=== PATIENT | female | born 1990 | race Caucasian/White ===

== ENCOUNTER 2016-12-22 01:07 | Emergency (ER) | payer SELFPAY ==
[~2016-12-22] VITALS: Ht 172.7 cm; Wt 89.5 kg
[~2016-12-22 01:07] MED LIST: ALBUTEROL2.5 MG/3 M IH; ALLERGY10 MG PO; DELSYM30 MG/5 M1 PO; IBUPROFEN200 M1 PO; LOTRISONE 0.05%1 CRE TP; MIRALAX17 GM PO; OMNICEF 300MG300 MG PO; PREDNISONE10 MG PO; TYLENOL 500MG500 MG PO; ZITHROMAX Z PA250 MG PO; ZOFRAN4 M1 PO
[2016-12-22 03:50] VITALS: BP 130/84
== END 2016-12-22 03:50 | disposition home or self-care (01) ==
LOC: ED 01:07
DX: R11.2 Nausea with vomiting, unspecified (principal); R10.9 Unspecified abdominal pain; F10.129 Alcohol abuse with intoxication, unspecified; Y90.6 Blood alcohol level of 120-199 mg/100 ml; Z32.02 Encounter for pregnancy test, result negative
CPT/HCPCS: J1885; J7030

== ENCOUNTER 2017-03-10 07:01 | Emergency (ER) | payer SELFPAY ==
[~2017-03-10] VITALS: Ht 172.7 cm; Wt 88.6 kg
[2017-03-10] MEDS ORDERED: WOMEN'S DAILY F1 TAB PO (07:25)
[2017-03-10 08:54] VITALS: BP 111/75
== END 2017-03-10 09:00 | disposition home or self-care (01) ==
LOC: ED 07:01
DX: R06.02 Shortness of breath (principal); R23.2 Flushing; R00.0 Tachycardia, unspecified; T46.7X5A Adverse effect of peripheral vasodilators, initial encounter
CPT/HCPCS: J7030

== ENCOUNTER 2018-11-22 05:58 | Emergency (ER) | payer OTHER ==
[~2018-11-22 05:58] MED LIST changes: +WOMEN'S DAILY F1 TAB PO
[2018-11-22 07:08] LABS: EOS # 0.3 (0.04-0.40); EOS % 2.9 % (1.0-5.0); HEMOGLOBIN 14.9 g/dL (12.5-16.0); LYMPH# 2.3 (1.50-4.00); MEAN CELL VOLUME 87 fl (78-100); MEAN CORPUSCULAR HEMOGLOBIN 28 pg (27-31); MEAN CORPUSCULAR HGB CONC 32 g/dL (33-37); MONO # 0.7 (0.20-0.80); NEU # 7.8 (1.40-6.50); PLATELET COUNT 267 K/mm3 (130-400); RED BLOOD COUNT 5.27 M/mm3 (4.10-5.30); RED CELL DISTRIBUTION WIDTH 14.9 % (11.5-14.5); WHITE BLOOD COUNT 11.2 K/mm3 (4.8-10.8)
[2018-11-22 07:17] LABS: CALCIUM 9.6 mg/dL (8.4-10.2); POTASSIUM 3.7 mmol/L (3.6-5.0)
[2018-11-22 07:19] LABS: URINE APPEARANCE CLOUDY; URINE BILIRUBIN NEGATIVE (NEGATIVE); URINE BLOOD 50 ery/uL (NEGATIVE); URINE COLOR YELLOW; URINE GLUCOSE NEGATIVE (NEGATIVE); URINE KETONE 1+ (NEGATIVE); URINE LEUKOCYTE ESTERASE 1+ (NEGATIVE); URINE NITRATE NEGATIVE (NEGATIVE); URINE PROTEIN(semi-quant) 1+ mg/dL (NEGATIVE); URINE UROBILINOGEN NORMAL (NORMAL)
[2018-11-22 07:20] LABS: URINE MUCUS PRESENT (NOT PRESENT)
[2018-11-22 10:07] LABS: URINE APPEARANCE CLOUDY; URINE COLOR 7; URINE GLUCOSE NEGATIVE (NEGATIVE); URINE PROTEIN(semi-quant) TRACE mg/dL (NEGATIVE)
[2018-11-22 10:08] LABS: URINE BILIRUBIN NEGATIVE (NEGATIVE); URINE BLOOD 250 ery/uL (NEGATIVE); URINE KETONE 1+ (NEGATIVE); URINE LEUKOCYTE ESTERASE NEGATIVE (NEGATIVE); URINE MUCUS PRESENT (NOT PRESENT); URINE NITRATE POSITIVE (NEGATIVE); URINE UROBILINOGEN NORMAL (NORMAL)
[2018-11-22] MEDS ORDERED: PERCOCET 325 MG1 TA2 PO (10:30)
[2018-11-22] MEDS ORDERED: MACROBID 100 M100 MG PO (10:30)
[2018-11-22 10:41] VITALS: BP 115/77
== END 2018-11-22 10:41 | disposition home or self-care (01) ==
LOC: ED 05:58
PROVIDERS: Family Medicine
DX: N23 Unspecified renal colic (principal); N39.0 Urinary tract infection, site not specified; F17.210 Nicotine dependence, cigarettes, uncomplicated; Z90.49 Acquired absence of other specified parts of digestive tract; Z87.442 Personal history of urinary calculi
CPT/HCPCS: A4216; J0696; J1885; J2405; J7030

== ENCOUNTER 2022-04-09 19:02 | Emergency (ER) | payer SELFPAY ==
[~2022-04-09 19:02] MED LIST changes: +MACROBID 100 M100 MG PO; +PERCOCET 325 MG1 TA2 PO
[2022-04-09 20:39] LABS: BASO # 0.07 K/mm3 (0.02-0.10); EOS # 0.12 K/mm3 (0.04-0.40); EOS % 0.5 % (1.0-5.0); HEMATOCRIT 43.3 % (37.0-47.0); HEMOGLOBIN 14.5 g/dL (12.5-16.0); LYMPH# 2.45 K/mm3 (1.50-4.00); MEAN CELL VOLUME 91 fl (78-100); MEAN CORPUSCULAR HEMOGLOBIN 30 pg (27-31); MEAN CORPUSCULAR HGB CONC 34 g/dL (33-37); MEAN PLATELET VOLUME 10.6 fl (7.4-10.4); MONO # 1.14 K/mm3 (0.20-0.80); NEU # 19.98 K/mm3 (1.40-6.50); PLATELET COUNT 230 K/mm3 (130-400); RED BLOOD COUNT 4.78 M/mm3 (4.10-5.30); RED CELL DISTRIBUTION WIDTH 13.3 % (11.5-14.5)
[2022-04-09 20:49] LABS: WHITE BLOOD COUNT 23.8 K/mm3 (4.8-10.8)
[2022-04-09 20:52] LABS: ALBUMIN 4.2 g/dL (3.5-5.0); POTASSIUM 3.7 mmol/L (3.5-5.1)
[2022-04-09 20:55] LABS: TOTAL PROTEIN 7.1 g/dL (6.4-8.3)
[2022-04-09 20:57] LABS: TOTAL BILIRUBIN 0.5 mg/dL (0.2-1.2)
[2022-04-09 22:11] LABS: PH-URINE 5.5 (5.0 - 8.0); URINE APPEARANCE HAZY; URINE COLOR YELLOW; URINE GLUCOSE NEGATIVE (NEGATIVE); URINE KETONE 3+ (NEGATIVE); URINE PROTEIN(semi-quant) TRACE (NEGATIVE)
[2022-04-09 22:12] LABS: URINE BILIRUBIN NEGATIVE (NEGATIVE); URINE BLOOD NEGATIVE (NEGATIVE); URINE LEUKOCYTE ESTERASE NEGATIVE (NEGATIVE); URINE MUCUS PRESENT (NOT PRESENT); URINE NITRATE NEGATIVE (NEGATIVE); URINE UROBILINOGEN 4 mg/dL (NORMAL); URINE WBC 0-1 /hpf (0-3)
[2022-04-09] MEDS ORDERED: AMOXICILLIN AND1 TA2 PO (22:14)
[2022-04-09] MEDS ORDERED: ZOFRAN ODT4 MG PO (22:14)
[2022-04-09 22:42] VITALS: BP 129/80
== END 2022-04-09 22:43 | disposition home or self-care (01) ==
LOC: ED 19:02
PROVIDERS: Physician Assistant
DX: U07.1 COVID-19 (principal); J32.9 Chronic sinusitis, unspecified; F17.200 Nicotine dependence, unspecified, uncomplicated; Z88.1 Allergy status to other antibiotic agents; Z28.310 Unvaccinated for COVID-19
CPT/HCPCS: J0696; J1885; J2405; J7030

== ENCOUNTER → 2023-04-18 | Outpatient (CLI) | payer MEDICAID ==
[~2023-04-18] MED LIST changes: +AMOXICILLIN AND1 TA2 PO; +ZOFRAN ODT4 MG PO
== END ==
LOC: LAB 10:12
DX: R53.83 Other fatigue (principal); Z20.822 Contact with and (suspected) exposure to COVID-19

== ENCOUNTER → 2023-05-27 | Outpatient (CLI) | payer MEDICAID | LOC: LAB 16:39 | DX: E55.9 Vitamin D deficiency, unspecified (principal) ==

== ENCOUNTER 2023-07-13 13:08 | Emergency (ER) | payer MEDICAID ==
[~2023-07-13] VITALS: Ht 172.7 cm; Wt 99.1 kg
[2023-07-13 13:10] VITALS: BP 137/92
[2023-07-13] MEDS ORDERED: CLOPIDOGREL75 M2 PO (13:35)
[2023-07-13] MEDS ORDERED: PROPRANOLOL HCL20 M2 PO (13:35)
[2023-07-13 13:38] LABS: BASO # 0.03 K/mm3 (0.02-0.10); EOS # 0.42 K/mm3 (0.04-0.40); EOS % 3.8 % (1.0-5.0); HEMOGLOBIN 14.7 g/dL (12.5-16.0); LYMPH# 3.08 K/mm3 (1.50-4.00); MEAN CELL VOLUME 94 fl (78-100); MEAN CORPUSCULAR HEMOGLOBIN 31 pg (27-31); MEAN CORPUSCULAR HGB CONC 33 g/dL (33-37); MEAN PLATELET VOLUME 10.2 fl (7.4-10.4); MONO # 0.43 K/mm3 (0.20-0.80); NEU # 6.96 K/mm3 (1.40-6.50); PLATELET COUNT 240 K/mm3 (130-400); RED BLOOD COUNT 4.81 M/mm3 (4.10-5.30); RED CELL DISTRIBUTION WIDTH 13.2 % (11.5-14.5)
[2023-07-13] MEDS ORDERED: PREDNISONE20 M1 PO (14:08)
== END 2023-07-13 14:14 | disposition home or self-care (01) ==
LOC: ED 13:08
PROVIDERS: Family Medicine
DX: J06.9 Acute upper respiratory infection, unspecified (principal); J45.909 Unspecified asthma, uncomplicated; F17.210 Nicotine dependence, cigarettes, uncomplicated; Z91.040 Latex allergy status

== ENCOUNTER → 2023-08-25 | Outpatient (CLI) | payer MEDICAID ==
[~2023-08-25] MED LIST changes: +CLOPIDOGREL75 M2 PO; +PREDNISONE20 M1 PO; +PROPRANOLOL HCL20 M2 PO
== END ==
LOC: RAD 18:22
DX: M54.50 Low back pain, unspecified (principal)

== ENCOUNTER 2023-09-24 08:30 | Emergency (ER) | payer MEDICAID ==
[~2023-09-24] VITALS: Ht 172.7 cm; Wt 100.0 kg
[2023-09-24] MEDS ORDERED: NS 1,000 ML IV ONE (09:00)
[2023-09-24 09:03] LABS: BASO # 0.07 K/mm3 (0.02-0.10); EOS # 0.43 K/mm3 (0.04-0.40); EOS % 3.6 % (1.0-5.0); HEMATOCRIT 44.4 % (37.0-47.0); HEMOGLOBIN 14.7 g/dL (12.5-16.0); LYMPH# 2.85 K/mm3 (1.50-4.00); MEAN CELL VOLUME 93 fl (78-100); MEAN CORPUSCULAR HEMOGLOBIN 31 pg (27-31); MEAN CORPUSCULAR HGB CONC 33 g/dL (33-37); MEAN PLATELET VOLUME 10.1 fl (7.4-10.4); MONO # 0.62 K/mm3 (0.20-0.80); NEU # 7.91 K/mm3 (1.40-6.50); PLATELET COUNT 303 K/mm3 (130-400); RED BLOOD COUNT 4.79 M/mm3 (4.10-5.30); RED CELL DISTRIBUTION WIDTH 13.6 % (11.5-14.5); WHITE BLOOD COUNT 11.9 K/mm3 (4.8-10.8)
[2023-09-24 09:11] LABS: ALBUMIN 4.1 g/dL (3.5-5.0)
[2023-09-24 09:13] LABS: CALCIUM 8.9 mg/dL (8.3-10.5)
[2023-09-24 09:14] LABS: TOTAL PROTEIN 6.6 g/dL (6.4-8.3)
[2023-09-24 09:16] LABS: TOTAL BILIRUBIN 0.3 mg/dL (0.2-1.2)
[2023-09-24] MEDS ORDERED: MULTIPLE VITAMI1 TA5 PO (09:17)
[2023-09-24] MEDS ORDERED: VITAMIN D3125 MCG (09:17)
[2023-09-24 09:48] LABS: PROTHROMBIN TIME 9.7 SECONDS (9.0-12.0)
[2023-09-24 10:10] VITALS: BP 109/73
== END 2023-09-24 10:10 | disposition home or self-care (01) ==
LOC: ED 08:30
PROVIDERS: Physician Assistant
DX: B34.9 Viral infection, unspecified (principal); R51.9 Headache, unspecified; R20.2 Paresthesia of skin; R20.0 Anesthesia of skin; R05.9 Cough, unspecified; Z91.040 Latex allergy status
CPT/HCPCS: J7030

== ENCOUNTER 2024-05-26 12:45 | Emergency (ER) | payer MEDICAID ==
[~2024-05-26] VITALS: Ht 172.7 cm; Wt 105.5 kg
[~2024-05-26 12:45] MED LIST changes: +MULTIPLE VITAMI1 TA5 PO; +VITAMIN D3125 MCG
[2024-05-26] MEDS ORDERED: NS 1,000 ML IV SCH (13:00)
[2024-05-26] MEDS ORDERED: PLAQUENIL 200M200 MG PO (13:11)
[2024-05-26 13:38] LABS: BASO # 0.05 K/mm3 (0.02-0.10); EOS # 0.47 K/mm3 (0.04-0.40); EOS % 3.7 % (1.0-5.0); HEMATOCRIT 40.9 % (37.0-47.0); HEMOGLOBIN 13.4 g/dL (12.5-16.0); LYMPH# 2.62 K/mm3 (1.50-4.00); MEAN CELL VOLUME 93 fl (78-100); MEAN CORPUSCULAR HEMOGLOBIN 31 pg (27-31); MEAN CORPUSCULAR HGB CONC 33 g/dL (33-37); MEAN PLATELET VOLUME 10.3 fl (7.4-10.4); MONO # 0.78 K/mm3 (0.20-0.80); NEU # 8.75 K/mm3 (1.40-6.50); PLATELET COUNT 272 K/mm3 (130-400); RED BLOOD COUNT 4.39 M/mm3 (4.10-5.30); RED CELL DISTRIBUTION WIDTH 12.8 % (11.5-14.5); WHITE BLOOD COUNT 12.7 K/mm3 (4.8-10.8)
[2024-05-26 13:51] LABS: SODIUM 139 mmol/L (136-145)
[2024-05-26 13:52] LABS: CALCIUM 8.8 mg/dL (8.3-10.5)
[2024-05-26 13:54] LABS: GLUCOSE 96 mg/dL (65-105); TOTAL PROTEIN 6.3 g/dL (6.4-8.3)
[2024-05-26 13:55] LABS: CARBON DIOXIDE 20 mmol/L (22-29); TOTAL BILIRUBIN 0.4 mg/dL (0.2-1.2)
[2024-05-26 13:59] LABS: AST-SGOT 12 U/L (5-34)
[2024-05-26 14:00] LABS: ALT/SGPT 9 U/L (0-55)
[2024-05-26 14:11] LABS: TROPONIN-I < 0.030 ng/mL (0.00-0.033)
[2024-05-26] MEDS ORDERED: predniSONE 20 MG TAB PO ONE (14:15)
[2024-05-26] MEDS ORDERED: Amoxicillin/Clavulanate K+ 875/125 MG TAB PO ONE (14:15)
[2024-05-26] MEDS ORDERED: PREDNISONE20 MG PO (14:23)
[2024-05-26] MEDS ORDERED: AMOXICILLIN AND1 TA2 PO (14:23)
[2024-05-26 14:37] VITALS: BP 105/63
== END 2024-05-26 14:37 | disposition home or self-care (01) ==
LOC: ED 12:45
PROVIDERS: Family Medicine
DX: J40 Bronchitis, not specified as acute or chronic (principal); Z91.040 Latex allergy status; Z90.49 Acquired absence of other specified parts of digestive tract; Z88.2 Allergy status to sulfonamides
CPT/HCPCS: J7030; J7512